=== PATIENT | male | born 1980 | race Caucasian/White ===

== ENCOUNTER 2020-11-12 22:18 | Emergency (ER) | payer MEDICAID ==
[~2020-11-12] VITALS: Ht 185.4 cm; Wt 72.7 kg
[~2020-11-12 22:18] MED LIST: LORA1TAB PO; PALI6TAB PO; ZIPR20CA2 PO
[2020-11-12 22:47] LABS: BASOPHILS # (AUTO) 0.1 X10'3 (0-0.2); EOSINOPHILS % (AUTO) 0.1 % (0-6); HEMOGLOBIN 13.4 g/dl (14.0-17.9); LYMPHOCYTES # (AUTO) 2.1 X10'3 (1.1-4.8); LYMPHOCYTES % (AUTO) 25.3 % (21-51); MEAN CORPUSCULAR HEMOGLOBIN 28.9 PG (27.0-31.0); MEAN CORPUSCULAR HGB CONC 32.8 g/dL (33.0-36.5); MEAN CORPUSCULAR VOLUME 88.1 FL (78-98); MEAN PLATELET VOLUME 7.1 FL (7.4-10.4); MONOCYTES # (AUTO) 0.6 X10'3 (0-0.9); MONOCYTES % (AUTO) 6.8 % (2-12); NEUTROPHILS # (AUTO) 5.6 X10'3 (1.8-7.7); NEUTROPHILS % (AUTO) 66.8 % (42-75); PLATELET COUNT 328 X10'3 (140-440); RED BLOOD COUNT 4.65 X10'6 (4.70-6.10); RED CELL DISTRIBUTION WIDTH 13.7 % (11.5-14.5); WHITE BLOOD COUNT 8.4 X10'3 (4.5-11.0)
--- NOTE | 2020-11-12 22:52 | NUR ---
Pt brought back to ER overflow accompanied by staff.
--- NOTE | 2020-11-12 22:56 | NUR ---
Pt changed into green scrubs, pt states he does not want to be here and that "no man owns another man."
[2020-11-12 23:03] LABS: ALANINE AMINOTRANSFERASE 38 U/L (12-78); ALBUMIN 3.9 G/DL (3.4-5.0); ALBUMIN/GLOBULIN RATIO 1.2 (1.1-1.5); ALKALINE PHOSPHATASE 119 IU/L (46-116); ANION GAP 7 (8-16); ASPARTATE AMINO TRANSFERASE 21 U/L (10-37); BILIRUBIN,TOTAL 0.3 MG/DL (0.1-1.0); BLOOD UREA NITROGEN 10 MG/DL (7-18); BUN/CREATININE RATIO 14.1 (5.4-32.0); CALCIUM 9.7 MG/DL (8.5-10.1); CHLORIDE 105 MMOL/L (99-107); CREATININE 0.71 MG/DL (0.60-1.10); ETHANOL < 0.010 GM/DL (0.0-0.010); GLUCOSE 98 MG/DL (70-104); POTASSIUM 4.3 MMOL/L (3.5-5.1); SODIUM 141 MMOL/L (135-145); TOTAL CARBON DIOXIDE 28.7 MMOL/L (24-32); TOTAL PROTEIN 7.2 G/DL (6.4-8.2); eGFR > 90 ML/MIN
[2020-11-12 23:12] LABS: URINE AMPHETAMINE SCREEN NEGATIVE (Neg); URINE BARBITUATE SCREEN NEGATIVE (Neg); URINE BENZODIAZEPINES SCREEN NEGATIVE (Neg); URINE CANNABINOID SCREEN NEGATIVE (Neg); URINE COCAINE SCREEN NEGATIVE (Neg); URINE METHADONE SCREEN NEGATIVE (Neg); URINE OPIATE SCREEN NEGATIVE (Neg); URINE PHENCYCLIDINE SCREEN NEGATIVE (Neg)
[2020-11-13] MEDS ORDERED: HALO10TA13 PO (00:23)
[2020-11-13] MEDS ORDERED: LEVO75CA5 PO (00:33)
[2020-11-13] MEDS ORDERED: DOCU100C33 PO (00:33)
[2020-11-13] MEDS ORDERED: AMAN100T2 PO (00:33)
[2020-11-13] MEDS ORDERED: DOXE10CA2 PO (00:33)
[2020-11-13] MEDS ORDERED: FLUV25TA3 PO (00:33)
[2020-11-13] MEDS ORDERED: CLOZ100T PO ×2 (00:33)
--- NOTE | 2020-11-13 02:03 | NUR ---
Pt up to the the restroom
--- NOTE | 2020-11-13 04:29 | NUR ---
Pt asleep on L side RR 14
[2020-11-13 05:11] VITALS: BP 103/63
[2020-11-13] MEDS ORDERED: levoTHYROXINE 75mcg tablet PO SCH (07:00)
--- NOTE | 2020-11-13 07:00 | NUR ---
Pt is medication compliant
[2020-11-13 07:12] LABS: CLARITY,URINE CLEAR (Clear); COLOR,URINE STRAW (Yellow); GLUCOSE, URINE NEGATIVE (Neg); KETONES,URINE NEGATIVE (Neg); LEUKOCYTE ESTERASE ,URINE NEGATIVE (Neg); NITRITES, URINE NEGATIVE (Neg); OCCULT BLOOD,URINE NEGATIVE (Neg); PROTEIN,URINE NEGATIVE (Neg); UROBILINOGEN,URINE 0.2 E.U/dL (0.2-1.0)
[2020-11-13 07:14] LABS: UA COLLECTION TYPE CLN CATCH MIDSTREAM
[2020-11-13] MEDS ORDERED: amantadine 100 MG capsule PO SCH (08:00)
[2020-11-13] MEDS ORDERED: clozapine 100mg tablet PO SCH ×2 (08:00→21:00)
[2020-11-13] MEDS ORDERED: docusate sod 100mg capsule PO SCH (08:00)
--- NOTE | 2020-11-13 08:10 | NUR ---
Pt is medication compliant
--- NOTE | 2020-11-13 08:51 | NUR ---
pt believes his dad is eliu clifton and continues talks about the elodia family
--- NOTE | 2020-11-13 09:00 | NUR ---
pt is walking around. no issues
--- NOTE | 2020-11-13 10:00 | NUR ---
pt is walking around.
--- NOTE | 2020-11-13 11:00 | NUR ---
pt is resting in his room. no issues
--- NOTE | 2020-11-13 11:59 | NUR ---
pt is speaking with [facility]
[2020-11-13] MEDS ORDERED: haloperidol 5mg tablet PO SCH (21:00)
[2020-11-13] MEDS ORDERED: fluvoxamine 25 MG tablet PO SCH (21:00)
[2020-11-13] MEDS ORDERED: doxepin 10mg capsule PO SCH (21:00)
== END 2020-11-13 14:16 | disposition home or self-care (01) ==
LOC: ER 22:18
DX: F20.9 Schizophrenia, unspecified (principal); F17.200 Nicotine dependence, unspecified, uncomplicated; Z56.0 Unemployment, unspecified; Z59.0 Homelessness; Z79.899 Other long term (current) drug therapy; Z73.6 Limitation of activities due to disability
CPT/HCPCS: 36415; 80053; 80305; 80320; 81003; 85025; 99285

== ENCOUNTER 2021-02-03 08:42 | Emergency (ER) | payer MEDICAID ==
[~2021-02-03] VITALS: Ht 182.9 cm; Wt 81.8 kg
[~2021-02-03 08:42] MED LIST changes: +AMAN100T2 PO; +CLOZ100T PO; +DOCU100C33 PO; +DOXE10CA2 PO; +FLUV25TA3 PO; +HALO10TA13 PO; +LEVO75CA5 PO; -LORA1TAB PO; -PALI6TAB PO; -ZIPR20CA2 PO
[2021-02-03 08:53] VITALS: BP 119/84
== END 2021-02-03 10:16 | disposition home or self-care (01) ==
LOC: ER 08:43
DX: F20.9 Schizophrenia, unspecified (principal); Z60.2 Problems related to living alone; Z59.0 Homelessness; Z56.0 Unemployment, unspecified; Z79.899 Other long term (current) drug therapy
CPT/HCPCS: 99281

== ENCOUNTER 2021-04-26 12:32 | Emergency (ER) | payer MEDICAID ==
[~2021-04-26] VITALS: Ht 185.4 cm; Wt 90.9 kg
[2021-04-26] MEDS ORDERED: LORazepam 1 MG tablet PO ONE (14:25)
[2021-04-26 14:48] LABS: URINE AMPHETAMINE SCREEN POSITIVE (Neg); URINE BARBITUATE SCREEN NEGATIVE (Neg); URINE BENZODIAZEPINES SCREEN NEGATIVE (Neg); URINE CANNABINOID SCREEN NEGATIVE (Neg); URINE COCAINE SCREEN NEGATIVE (Neg); URINE METHADONE SCREEN NEGATIVE (Neg); URINE OPIATE SCREEN NEGATIVE (Neg); URINE PHENCYCLIDINE SCREEN NEGATIVE (Neg)
[2021-04-26 14:50] LABS: CLARITY,URINE CLEAR (Clear); COLOR,URINE YELLOW (Yellow); GLUCOSE, URINE NEGATIVE (Neg); KETONES,URINE 15 mg/dl (Neg); LEUKOCYTE ESTERASE ,URINE NEGATIVE (Neg); NITRITES, URINE NEGATIVE (Neg); OCCULT BLOOD,URINE NEGATIVE (Neg); PROTEIN,URINE TRACE mg/dl (Neg); UROBILINOGEN,URINE 0.2 E.U/dL (0.2-1.0)
[2021-04-26 15:00] LABS: UA COLLECTION TYPE CLN CATCH MIDSTREAM
[2021-04-26 15:03] LABS: BASOPHILS # (AUTO) 0.1 X10'3 (0-0.2); BASOPHILS % (AUTO) 0.5 % (0-1); EOSINOPHILS % (AUTO) 0 % (0-6); HEMATOCRIT 45.7 % (42.0-52.0); HEMOGLOBIN 15.4 g/dl (14.0-17.9); LYMPHOCYTES # (AUTO) 2.1 X10'3 (1.1-4.8); LYMPHOCYTES % (AUTO) 17.4 % (21-51); MEAN CORPUSCULAR HEMOGLOBIN 29.2 PG (27.0-31.0); MEAN CORPUSCULAR HGB CONC 33.7 g/dL (33.0-36.5); MEAN CORPUSCULAR VOLUME 86.6 FL (78-98); MEAN PLATELET VOLUME 7.7 FL (7.4-10.4); MONOCYTES # (AUTO) 0.8 X10'3 (0-0.9); MONOCYTES % (AUTO) 6.5 % (2-12); NEUTROPHILS # (AUTO) 9.1 X10'3 (1.8-7.7); NEUTROPHILS % (AUTO) 75.6 % (42-75); PLATELET COUNT 396 X10'3 (140-440); RED BLOOD COUNT 5.27 X10'6 (4.70-6.10); RED CELL DISTRIBUTION WIDTH 13.2 % (11.5-14.5)
[2021-04-26 15:03] LABS: BACTERIA,URINE FEW /HPF (Neg); MUCUS STRANDS MODERATE /LPF (Neg); RBC,URINE NONE SEEN /HPF (0-2); SQUAMOUS EPITHELIAL CELL,UR FEW /LPF (FEW); WBC,URINE 0-4 /HPF (0-4)
[2021-04-26 15:18] LABS: ALANINE AMINOTRANSFERASE 28 U/L (12-78); ALBUMIN 4.6 G/DL (3.4-5.0); ALBUMIN/GLOBULIN RATIO 1.3 (1.1-1.5); ALKALINE PHOSPHATASE 146 IU/L (46-116); ANION GAP 10 (8-16); ASPARTATE AMINO TRANSFERASE 28 U/L (10-37); BILIRUBIN,TOTAL 0.6 MG/DL (0.1-1.0); BLOOD UREA NITROGEN 19 MG/DL (7-18); BUN/CREATININE RATIO 22.4 (5.4-32.0); CALCIUM 9.6 MG/DL (8.5-10.1); CHLORIDE 98 MMOL/L (99-107); CREATININE 0.85 MG/DL (0.60-1.10); ETHANOL < 0.010 GM/DL (0.0-0.010); GLUCOSE 76 MG/DL (70-104); POTASSIUM 4.7 MMOL/L (3.5-5.1); SODIUM 136 MMOL/L (135-145); TOTAL CARBON DIOXIDE 27.9 MMOL/L (24-32); TOTAL PROTEIN 8.2 G/DL (6.4-8.2); eGFR > 90 ML/MIN
[2021-04-26 15:19] LABS: ACETAMINOPHEN < 2.0 UG/ML (10-30)
--- NOTE | 2021-04-26 16:30 | NUR ---
PT RESTING IN BED, HAS BEEN WALKING AROUND IN ROOM. COOPERATIVE. TAKING FLUIDS, NO DISTRESS
--- NOTE | 2021-04-26 18:06 | NUR ---
PT RESTING IN BED, LYING ON SIDE, VISIBLE TO UNDERTAKER HELPER STATION
--- NOTE | 2021-04-26 18:20 | NUR ---
PT EATING IN ROOM
[2021-04-26] MEDS ORDERED: olanzapine 10mg tablet PO ONE (18:45)
--- NOTE | 2021-04-26 19:39 | NUR ---
MOVED FROM MAIN ER TO OVERFLOW BED 22. REPORTS FROM JUNAID HALL.
--- NOTE | 2021-04-26 19:43 | NUR ---
SPOKE WITH [facility], WHO REQ'S TSH ADD ON. LAB WILL DO THIS AND RESPADD NOTIFIED.
--- NOTE | 2021-04-26 21:35 | NUR ---
HOSSEIN FROM [facility] CALLING TO REQUEST TSH RESULT TO BE FAXED AND FOR PT TO HAVE COVID SWAB. ORDER PLACED FOR SWAB AND COLLECTED FROM PT WITHOUT ANY INCIDENT. WHEN ASKED IF HE'S BEEN SWABBED FOR COVID HE ANSWERS NO. ASKED IF HE KNOWS ABOUT THE COVID SWAB PROCESS OR KNOWS ANYONE WHO HAS HAD IT DONE HE STATES NO. PT DENIES ANY NEEDS AT THIS TIME. CURRENTLY LYING ON HIS LEFT SIDE WITH BLANKETS COVERING TO HIS SHOUDERS AND EYES CLOSED. HE IS CALM AND COOPERATIVE. SITTER AND RN WITHIN VIEW OF PT AAT.
--- NOTE | 2021-04-26 22:41 | NUR ---
COVID NEGITIVE. RESULTS FAXED TO [facility], HOSSEIN.
--- NOTE | 2021-04-26 23:14 | NUR ---
PT REMAINS ASLEEP, LYING ON HIS RIGHT SIDE WITH BLANKETS COVERING TO HER CHEST. RR 14 AND UNLABORED. SITTER AND RN WITHIN VIEW OF PT AAT. LANDRY FROM [facility] CALLING TO REPORT SHE RECEIVED THE [facility] LAB RESULTS.
--- NOTE | 2021-04-27 00:20 | NUR ---
Pt out of bed and ambulating to br with steady gait. Denied any needs. Returned to his bed and lay back down, covering himself with blankets to his shouders.
--- NOTE | 2021-04-27 03:21 | NUR ---
Pt sleeping. RR 14 and unlabored. Blankets covering to his shouder and pt lying on his left side. Sitter and RN within view of Pt aat.
--- NOTE | 2021-04-27 05:06 | NUR ---
pt remains asleep
[2021-04-27] MEDS ORDERED: UNABLE TO OBTAIN (05:39)
[2021-04-27 05:46] VITALS: BP 93/54
--- NOTE | 2021-04-27 06:14 | NUR ---
Pt awakened for am vs. VSS. Pt then went right back to sleep.
--- NOTE | 2021-04-27 06:42 | NUR ---
pt woke up around 0630 standing in his room and staring at nurses station,no attention was given and pt went back to sleep again.pt is laying in bed quietly with face covered with bed linen .rr nonlabored and WNL.
--- NOTE | 2021-04-27 08:05 | NUR ---
recived call from stephanie lemus ,as per her pt is accepted to [facility] but needed covid result to be faxed to [facility].
--- NOTE | 2021-04-27 08:08 | NUR ---
covid result test report faxed to [place] office at [phone].
--- NOTE | 2021-04-27 08:38 | NUR ---
pt sitting on side of bed eating his breakfast .pt said "thank you for the food".informed the pt if he needs any snack he can ask for it as he have pantry and we can provide snacks in betw the meal times.pt verbalized undersatnding.
--- NOTE | 2021-04-27 08:49 | NUR ---
respadd in route for patient, 10-15 min eta.
--- NOTE | 2021-04-27 08:53 | NUR ---
belongings returned to patient. instructed to get ready for transport.
--- NOTE | 2021-04-27 09:03 | NUR ---
pt came out of restroom getting dress up as [facility] personel on their way to [place] pt.
--- NOTE | 2021-04-27 09:11 | NUR ---
escorted out with security & MH worker
== END 2021-04-27 09:21 ==
LOC: ER 12:33
DX: F79 Unspecified intellectual disabilities (principal); Z20.822 Contact with and (suspected) exposure to COVID-19; F20.9 Schizophrenia, unspecified; Z60.2 Problems related to living alone; Z56.0 Unemployment, unspecified; Z59.0 Homelessness; Z79.899 Other long term (current) drug therapy
CPT/HCPCS: 36415; 80053; 80178; 80305; 80320; 80329; 81001; 84443; 85025; 87426; 99285

== ENCOUNTER 2021-10-30 11:40 | Emergency (ER) | payer MEDICAID ==
[~2021-10-30] VITALS: Ht 185.4 cm; Wt 70.0 kg
[~2021-10-30 11:40] MED LIST changes: +FLUV25TA14 PO; -FLUV25TA3 PO; +UNABLE TO OBTAIN
[2021-10-30 11:45] VITALS: BP 17/75
--- NOTE | 2021-10-30 11:58 | NUR ---
PT POURED URINE SAMPLE DOWN SINK "ITS BLOOD POISONING." TOLERATING BLOOD DRAW WELL.
[2021-10-30 12:18] LABS: BASOPHILS % (AUTO) 0.2 % (0-1); EOSINOPHILS % (AUTO) 0 % (0-6); HEMATOCRIT 41.4 % (42.0-52.0); LYMPHOCYTES # (AUTO) 1.9 X10'3 (1.1-4.8); LYMPHOCYTES % (AUTO) 24.8 % (21-51); MEAN CORPUSCULAR HEMOGLOBIN 29.6 PG (27.0-31.0); MEAN CORPUSCULAR HGB CONC 33.7 g/dL (33.0-36.5); MEAN CORPUSCULAR VOLUME 87.7 FL (78-98); MEAN PLATELET VOLUME 8.2 FL (7.4-10.4); MONOCYTES # (AUTO) 0.4 X10'3 (0-0.9); MONOCYTES % (AUTO) 5.6 % (2-12); NEUTROPHILS # (AUTO) 5.3 X10'3 (1.8-7.7); NEUTROPHILS % (AUTO) 69.4 % (42-75); PLATELET COUNT 247 X10'3 (140-440); RED BLOOD COUNT 4.73 X10'6 (4.70-6.10); RED CELL DISTRIBUTION WIDTH 13.4 % (11.5-14.5); WHITE BLOOD COUNT 7.6 X10'3 (4.5-11.0)
[2021-10-30 12:28] LABS: ALANINE AMINOTRANSFERASE 43 U/L (12-78); ALBUMIN 4.3 G/DL (3.4-5.0); ALBUMIN/GLOBULIN RATIO 1.3 (1.1-1.5); ALKALINE PHOSPHATASE 92 IU/L (46-116); ANION GAP 8 (8-16); ASPARTATE AMINO TRANSFERASE 21 U/L (10-37); BILIRUBIN,TOTAL 0.3 MG/DL (0.1-1.0); BLOOD UREA NITROGEN 14 MG/DL (7-18); BUN/CREATININE RATIO 19.4 (5.4-32.0); CALCIUM 8.9 MG/DL (8.5-10.1); CHLORIDE 102 MMOL/L (99-107); CREATININE 0.72 MG/DL (0.60-1.10); GLUCOSE 106 MG/DL (70-104); POTASSIUM 4.3 MMOL/L (3.5-5.1); SODIUM 141 MMOL/L (135-145); TOTAL PROTEIN 7.5 G/DL (6.4-8.2); eGFR > 90 ML/MIN
--- NOTE | 2021-10-30 12:30 | NUR ---
PT ELOPED FROM ER8. HARLEEN NOTIFIED, DEREK NOTIFIED.
[2021-10-30 12:43] LABS: ETHANOL < 0.010 GM/DL (0.0-0.010)
== END 2021-10-31 04:59 | disposition left against medical advice (07) ==
LOC: ER 11:40
DX: F25.0 Schizoaffective disorder, bipolar type (principal); F31.9 Bipolar disorder, unspecified; Z56.0 Unemployment, unspecified; Z59.00 Homelessness unspecified; Z79.899 Other long term (current) drug therapy
CPT/HCPCS: 36415; 80053; 80320; 84443; 85025; 99285

== ENCOUNTER 2021-10-31 09:32 | Emergency (ER) | payer MEDICAID ==
[~2021-10-31] VITALS: Ht 182.9 cm; Wt 75.0 kg
[2021-10-31] MEDS ORDERED: LORazepam 2 mg/ml vial IM ONE (09:40)
[2021-10-31] MEDS ORDERED: haloperidol lactate 5mg/ml inj IM ONE (09:40)
[2021-10-31] MEDS ORDERED: diphenhydrAMINE 50 mg/ml inj IM ONE (09:40)
[2021-10-31 10:37] LABS: BASOPHILS % (AUTO) 0.1 % (0-1); EOSINOPHILS % (AUTO) 0 % (0-6); HEMATOCRIT 42.3 % (42.0-52.0); HEMOGLOBIN 14.2 g/dl (14.0-17.9); LYMPHOCYTES # (AUTO) 1.5 X10'3 (1.1-4.8); MEAN CORPUSCULAR HEMOGLOBIN 29.3 PG (27.0-31.0); MEAN CORPUSCULAR HGB CONC 33.7 g/dL (33.0-36.5); MEAN PLATELET VOLUME 8.3 FL (7.4-10.4); MONOCYTES # (AUTO) 0.6 X10'3 (0-0.9); MONOCYTES % (AUTO) 6.9 % (2-12); NEUTROPHILS # (AUTO) 5.9 X10'3 (1.8-7.7); PLATELET COUNT 260 X10'3 (140-440); RED BLOOD COUNT 4.86 X10'6 (4.70-6.10); RED CELL DISTRIBUTION WIDTH 13.7 % (11.5-14.5)
[2021-10-31 10:46] LABS: ASPARTATE AMINO TRANSFERASE 26 U/L (10-37); BILIRUBIN,TOTAL 0.3 MG/DL (0.1-1.0); BLOOD UREA NITROGEN 7 MG/DL (7-18); BUN/CREATININE RATIO 9.7 (5.4-32.0); CALCIUM 8.7 MG/DL (8.5-10.1); CHLORIDE 105 MMOL/L (99-107); CREATININE 0.72 MG/DL (0.60-1.10); GLUCOSE 92 MG/DL (70-104); POTASSIUM 4.2 MMOL/L (3.5-5.1); TOTAL CARBON DIOXIDE 30.5 MMOL/L (24-32); eGFR > 90 ML/MIN
[2021-10-31 10:49] LABS: ALANINE AMINOTRANSFERASE 45 U/L (12-78); ALBUMIN 4.2 G/DL (3.4-5.0); ALBUMIN/GLOBULIN RATIO 1.3 (1.1-1.5); ALKALINE PHOSPHATASE 97 IU/L (46-116); ETHANOL < 0.010 GM/DL (0.0-0.010); SODIUM 142 MMOL/L (135-145); TOTAL PROTEIN 7.4 G/DL (6.4-8.2)
--- NOTE | 2021-10-31 11:05 | NUR ---
URINE COLLECTED AND SENT TO LAB.
[2021-10-31 11:29] LABS: CLARITY,URINE CLEAR (Clear); COLOR,URINE YELLOW (Yellow); GLUCOSE, URINE NEGATIVE (Neg); KETONES,URINE NEGATIVE (Neg); LEUKOCYTE ESTERASE ,URINE NEGATIVE (Neg); NITRITES, URINE NEGATIVE (Neg); OCCULT BLOOD,URINE NEGATIVE (Neg); PROTEIN,URINE NEGATIVE (Neg); UROBILINOGEN,URINE 0.2 E.U/dL (0.2-1.0)
[2021-10-31 11:33] LABS: UA COLLECTION TYPE URINAL; URINE AMPHETAMINE SCREEN NEGATIVE (Neg); URINE BARBITUATE SCREEN NEGATIVE (Neg); URINE BENZODIAZEPINES SCREEN NEGATIVE (Neg); URINE CANNABINOID SCREEN POSITIVE (Neg); URINE COCAINE SCREEN NEGATIVE (Neg); URINE METHADONE SCREEN NEGATIVE (Neg); URINE OPIATE SCREEN NEGATIVE (Neg); URINE PHENCYCLIDINE SCREEN NEGATIVE (Neg)
[2021-10-31 11:56] LABS: ANION GAP 7 (8-16)
--- NOTE | 2021-10-31 12:15 | NUR ---
PACKET FAXED TO [facility]
--- NOTE | 2021-10-31 14:16 | NUR ---
Patient ambulated to bed 23. Patient appears sedated, and went right to sleep.
--- NOTE | 2021-10-31 15:21 | NUR ---
Patient is sleeping on his left side. Respirations are even and nonlabored.
--- NOTE | 2021-10-31 15:44 | NUR ---
breaking primary RN patient in bed lying on left side covers on eyes closed rr even un labored no observable s/s of acute stress at this time
--- NOTE | 2021-10-31 16:37 | NUR ---
Patient eating lunch tray.
--- NOTE | 2021-10-31 17:10 | NUR ---
Patient awakened and is up to the restroom. States that he is "fine".
[2021-10-31 17:30] VITALS: BP 107/70
--- NOTE | 2021-10-31 17:59 | NUR ---
Patient is eating dinner.
== END 2021-10-31 18:51 ==
LOC: ER 09:32
DX: F25.0 Schizoaffective disorder, bipolar type (principal); Z20.822 Contact with and (suspected) exposure to COVID-19; K02.9 Dental caries, unspecified; K08.89 Other specified disorders of teeth and supporting structures; Z56.0 Unemployment, unspecified; Z59.00 Homelessness unspecified; Z79.899 Other long term (current) drug therapy
CPT/HCPCS: 36415; 80053; 80305; 80320; 81003; 84443; 85025; 87635; 96372; 99285; C9803; J1200; J1630; J2060

== ENCOUNTER 2022-11-20 09:20 | Inpatient (IN) | payer MEDICAID ==
[~2022-11-20] VITALS: Ht 185.4 cm; Wt 69.5 kg
[2022-11-20] MEDS ORDERED: acetaminophen 325mg tablet PO STA (09:33)
[2022-11-20] MEDS ORDERED: normal saline 1000ML IV soln IV ONE (09:35)
--- NOTE | 2022-11-20 10:00 | NUR ---
PT AO 3 SOFT SPOKEN SPEAKS CLEARLY. DENIES SP SOB. RESP EVEN UNLABORED. SKIN IS HOT TO TOUCH COOLING MEASURES INTIATED. PT DRESSED IN GOWN CALL LIGHT AT BEDSIDE.
[2022-11-20 10:04] LABS: BASOPHILS # (AUTO) 0.3 X10'3 (0-0.2); BASOPHILS % (AUTO) 1.2 % (0-1); EOSINOPHILS % (AUTO) 0 % (0-6); HEMOGLOBIN 12.8 g/dl (14.0-17.9); LYMPHOCYTES # (AUTO) 0.7 X10'3 (1.1-4.8); MEAN CORPUSCULAR VOLUME 85.1 FL (78-98); MEAN PLATELET VOLUME 6.9 FL (7.4-10.4); MONOCYTES # (AUTO) 0.7 X10'3 (0-0.9); MONOCYTES % (AUTO) 3.1 % (2-12); NEUTROPHILS # (AUTO) 21.7 X10'3 (1.8-7.7); NEUTROPHILS % (AUTO) 92.7 % (42-75); PLATELET COUNT 350 X10'3 (140-440); RED BLOOD COUNT 4.58 X10'6 (4.70-6.10); RED CELL DISTRIBUTION WIDTH 14.5 % (11.5-14.5); WHITE BLOOD COUNT 23.4 X10'3 (4.5-11.0)
[2022-11-20] MEDS ORDERED: CefTRIAXone 2gm/D5W 50ml BAG 50 ML IV ONE (10:20)
[2022-11-20 11:04] LABS: CLARITY,URINE SLIGHTLY CLOUDY (Clear); COLOR,URINE YELLOW (Yellow); GLUCOSE, URINE NEGATIVE (Neg); KETONES,URINE NEGATIVE (Neg); LEUKOCYTE ESTERASE ,URINE TRACE (Neg); NITRITES, URINE NEGATIVE (Neg); OCCULT BLOOD,URINE TRACE-INTACT (Neg); PROTEIN,URINE NEGATIVE (Neg); UROBILINOGEN,URINE 0.2 E.U/dL (0.2-1.0)
[2022-11-20 11:04] LABS: ALANINE AMINOTRANSFERASE 25 U/L (12-78); ALBUMIN 3.2 G/DL (3.4-5.0); ALBUMIN/GLOBULIN RATIO 0.8 (1.1-1.5); ALKALINE PHOSPHATASE 93 IU/L (46-116); ANION GAP 9 (8-16); ASPARTATE AMINO TRANSFERASE 16 U/L (10-37); BILIRUBIN,TOTAL 0.3 MG/DL (0.1-1.0); BLOOD UREA NITROGEN 9 MG/DL (7-18); BUN/CREATININE RATIO 10.6 (5.4-32.0); CALCIUM 8.5 MG/DL (8.5-10.1); CHLORIDE 98 MMOL/L (99-107); CREATININE 0.85 MG/DL (0.60-1.10); GLUCOSE 142 MG/DL (70-104); SODIUM 132 MMOL/L (135-145); TOTAL CARBON DIOXIDE 25.1 MMOL/L (24-32); TOTAL PROTEIN 7.1 G/DL (6.4-8.2); eGFR > 90 ML/MIN
[2022-11-20 11:23] LABS: UA COLLECTION TYPE NON-SPECIFIED
[2022-11-20 11:31] LABS: SQUAMOUS EPITHELIAL CELL,UR FEW /LPF (FEW)
[2022-11-20 11:33] LABS: RBC,URINE 0-2 /HPF (0-2)
[2022-11-20 11:38] LABS: BACTERIA,URINE 1+ /HPF (Neg); MUCUS STRANDS NONE SEEN /LPF (Neg); WBC CLUMPS,URINE FEW /HPF (NEGATIVE)
[2022-11-20] MEDS ORDERED: magnesium Cl slow-release 64mg tablet PO PRN (12:15)
[2022-11-20] MEDS ORDERED: magnesium 4gm in 100ml NS 100 ML IV PRN (12:15)
[2022-11-20] MEDS ORDERED: ondansetron/PF 4mg/2ml inj IV PRN (12:15)
[2022-11-20] MEDS: normal saline 1000ml 1,000 ML IV SCH ×2 (12:15→22:09)
[2022-11-20] MEDS ORDERED: potassium Cl 40MEQ/1/2NS 520ml 520 ML IV PRN (12:15)
[2022-11-20] MEDS ORDERED: potassium Cl 20 mEq SR tablet PO PRN ×2 (12:15)
[2022-11-20] MEDS ORDERED: CefTRIAXone/D5W-Rocephin 1gm 50 ML IV SCH (13:35)
[2022-11-20] MEDS ORDERED: ketorolac tromethamine 15mg/ml inj. IV ONE (14:10)
--- NOTE | 2022-11-20 14:10 | NUR ---
PT SPIKE FEVER OF 103.5 PROVIDER ESMER MADE AWARE NEW ORDER OF TORADOL TO BE GIVEN.
[2022-11-20] MEDS ORDERED: DOCU100C40 PO (15:34)
[2022-11-20] MEDS ORDERED: LEVO50TA PO (15:35)
[2022-11-20] MEDS ORDERED: CHOL20004 PO (15:35)
[2022-11-20] MEDS ORDERED: LORA-269 PO (15:36)
[2022-11-20] MEDS ORDERED: DESM0.1T24 PO (15:36)
[2022-11-20] MEDS ORDERED: CLOZ50TA PO (15:38)
[2022-11-20] MEDS ORDERED: GABA-534 PO (15:39)
[2022-11-20] MEDS ORDERED: SALINE NASAL SPRAY NAS (15:41)
[2022-11-20] MEDS: K and/or MAG REPLACEMENT MC SCH (16:08)
[2022-11-20] MEDS: acetaminophen 325mg tablet PO PRN ×2 (16:12→22:08)
--- NOTE | 2022-11-20 16:22 | NUR ---
TORADOL IV MED INEFFECTIVE. PO PRN TYLENOL 650 MG GIVEN.
--- NOTE | 2022-11-20 18:23 | NUR ---
REPORT TO MILTON CAMACHO FOR CONTINUATION OF CARE.
--- NOTE | 2022-11-20 21:00 | NUR ---
called floor for report rn not avalible. requested to call back in a few min.
--- NOTE | 2022-11-20 21:35 | NUR ---
REPORT CALLED TO FLOOR NURSE TX BY TECH TO ROOM 350A
[2022-11-20 22:06] VITALS: BP 114/67
[2022-11-21] MEDS ORDERED: acetaminophen 325mg tablet PO PRN (02:35)
[2022-11-21 02:45] VITALS: BP 78/51
--- NOTE | 2022-11-21 03:20 | NUR ---
PAGER ID: [phone] MESSAGE: PT Chandrakant 350A Ladarius Ramon BP 78/51 250cc bolus is being given. masha [phone]
[2022-11-21 03:22] VITALS: BP 96/76
--- NOTE | 2022-11-21 03:24 | NUR ---
PAGER ID: [phone] MESSAGE: Pt [id number] Ladarius Nguyễn had BP 78/51 is now 96/74 after receiving bolus and temp is 102.7 with cooling blanket. Has NS running at 100ml/hr. please advise Radha [phone]
--- NOTE | 2022-11-21 03:30 | NUR ---
Dr Muñiz made aware that BP was 78/51 received 250cc bolus BP up to 96/76 and has N/S running at 100 ml/hr patient temp is 102.7 on cooling blanket received Tylenol aprox 40 min ago. Recheck Q 1 hour no new orders at this time.
--- NOTE | 2022-11-21 04:25 | NUR ---
PAGER ID: [phone] MESSAGE: PtRM 350A TristenLadarius is agitated and wants to leave he is from [facility] ripped out IV can we please get something to calm him down PO masha [phone]
[2022-11-21] MEDS ORDERED: LORazepam 1 MG tablet PO ONE (04:40)
--- NOTE | 2022-11-21 05:02 | NUR ---
Pt felt he was having some sort of blood transfusion done that he did not authorize he was educated on what he was getting normal saline and had received antibiotics in the ED. He ripped out his IV and removed his blood pressure cuff. Nadya from [facility] said this patient has a fixation with blood and blood purification at baseline and can obsess about it. Patient said he "Trusts no one". Pt was escorted back to his room by security after saying he wanted to go back to his room at [facility] and tried to get on the elevator. Dr Muñiz aware and ordered the patient's home med of Ativan 1mg po and his nighttime Clozaril dose along with soft restraints. Pt is refusing all vitals but did take his PO Ativan. Unable to assess temperature or blood pressure at this time.
--- NOTE | 2022-11-21 06:00 | NUR ---
Problems reprioritized. Patient report given, questions answered & plan of care reviewed with JUNAID Meehan.
[2022-11-21 06:40] LABS: BASOPHILS % (AUTO) 0.2 % (0-1); EOSINOPHILS % (AUTO) 0 % (0-6); HEMATOCRIT 37.7 % (42.0-52.0); HEMOGLOBIN 12.5 g/dl (14.0-17.9); LYMPHOCYTES # (AUTO) 0.6 X10'3 (1.1-4.8); MEAN CORPUSCULAR HEMOGLOBIN 28.7 PG (27.0-31.0); MEAN CORPUSCULAR HGB CONC 33.2 g/dL (33.0-36.5); MEAN CORPUSCULAR VOLUME 86.5 FL (78-98); MONOCYTES # (AUTO) 0.5 X10'3 (0-0.9); MONOCYTES % (AUTO) 3.7 % (2-12); NEUTROPHILS # (AUTO) 11.6 X10'3 (1.8-7.7); NEUTROPHILS % (AUTO) 91.1 % (42-75); PLATELET COUNT 258 X10'3 (140-440); RED BLOOD COUNT 4.36 X10'6 (4.70-6.10); WHITE BLOOD COUNT 12.7 X10'3 (4.5-11.0)
[2022-11-21 07:00] VITALS: BP 92/59
[2022-11-21 07:23] LABS: ALBUMIN 2.8 G/DL (3.4-5.0); ANION GAP 10 (8-16); BLOOD UREA NITROGEN 7 MG/DL (7-18); BUN/CREATININE RATIO 9.1 (5.4-32.0); CALCIUM 8.3 MG/DL (8.5-10.1); CHLORIDE 101 MMOL/L (99-107); CREATININE 0.77 MG/DL (0.60-1.10); GLUCOSE 130 MG/DL (70-104); MAGNESIUM 2.2 MG/DL (1.5-2.4); POTASSIUM 3.7 MMOL/L (3.5-5.1); SODIUM 134 MMOL/L (135-145); TOTAL CARBON DIOXIDE 23.4 MMOL/L (24-32); eGFR > 90 ML/MIN
[2022-11-21] MEDS: K and/or MAG REPLACEMENT MC SCH ×2 (08:00→20:00)
[2022-11-21] MEDS ORDERED: CefTRIAXone/D5W-Rocephin 1gm 50 ML IV SCH (08:00)
[2022-11-21] MEDS: normal saline 1000ml 1,000 ML IV SCH ×2 (08:15→18:15)
[2022-11-21] MEDS: LORazepam 1 MG tablet PO SCH ×2 (08:39→20:34)
[2022-11-21 09:00] VITALS: BP 114/69
[2022-11-21 11:38] VITALS: BP 114/69
--- NOTE | 2022-11-21 11:59 | NUR ---
Spoke with Nurse at [facility], she notified me that the patients bed will be held and patient will be able to dc back to [facility] when ready. [employer] Project Manager notified.
[2022-11-21] MEDS: CefTRIAXone 1000mg IM Kit (w/lidocaine diluent) IM SCH (15:34)
--- NOTE | 2022-11-21 15:51 | NUR ---
PAGER ID: [phone] MESSAGE: [id number] Jonathan Ramon: Patient refusing to leave his tele on. His 24hr order ends at 2250. can I dc early? thanks, marimar [phone]
[2022-11-21 18:00] VITALS: BP 106/68
--- NOTE | 2022-11-21 18:28 | NUR ---
Patient in room REJI 350. I have received report from Anju QUIROGA and had the opportunity to ask questions and assume patient care.
--- NOTE | 2022-11-21 18:56 | NUR ---
Problems reprioritized. Patient report given, questions answered & plan of care reviewed with JUNAID De Leon.
--- NOTE | 2022-11-21 20:25 | NUR ---
Called MD to see if ok to give desmopressin tonight as Na 134 and patient has no iv/fluids running. Per MD, OK to give.
[2022-11-21] MEDS ORDERED: clozapine 100mg tablet PO SCH (21:00)
[2022-11-21] MEDS ORDERED: DESMOPRESSIN ACETATE 0.1 MG TABLET PO SCH (21:00)
[2022-11-21] MEDS ORDERED: clozapine 25mg tablet PO SCH (21:00)
[2022-11-21] MEDS ORDERED: docusate sod 100mg capsule PO SCH (21:00)
--- NOTE | 2022-11-21 22:00 | NUR ---
Patient refused for 2200 VS to be taken. Will retry later.
[2022-11-22] MEDS: gabapentin 400mg capsule PO SCH ×2 (00:07→08:21)
[2022-11-22 00:11] VITALS: BP 94/62
[2022-11-22] MEDS: normal saline 1000ml 1,000 ML IV SCH ×2 (04:15→14:15)
--- NOTE | 2022-11-22 06:10 | NUR ---
Problems reprioritized. Patient report given, questions answered & plan of care reviewed with Anju QUIROGA.
[2022-11-22 06:23] LABS: BASOPHILS % (AUTO) 0.3 % (0-1); EOSINOPHILS % (AUTO) 0.1 % (0-6); HEMATOCRIT 32.8 % (42.0-52.0); HEMOGLOBIN 10.9 g/dl (14.0-17.9); LYMPHOCYTES # (AUTO) 1.3 X10'3 (1.1-4.8); LYMPHOCYTES % (AUTO) 18.2 % (21-51); MEAN CORPUSCULAR HEMOGLOBIN 28.2 PG (27.0-31.0); MEAN CORPUSCULAR HGB CONC 33.2 g/dL (33.0-36.5); MEAN CORPUSCULAR VOLUME 84.8 FL (78-98); MEAN PLATELET VOLUME 7.1 FL (7.4-10.4); MONOCYTES # (AUTO) 0.5 X10'3 (0-0.9); MONOCYTES % (AUTO) 6.6 % (2-12); NEUTROPHILS # (AUTO) 5.5 X10'3 (1.8-7.7); NEUTROPHILS % (AUTO) 74.8 % (42-75); PLATELET COUNT 219 X10'3 (140-440); RED BLOOD COUNT 3.86 X10'6 (4.70-6.10); RED CELL DISTRIBUTION WIDTH 15.3 % (11.5-14.5); WHITE BLOOD COUNT 7.4 X10'3 (4.5-11.0)
[2022-11-22 06:33] LABS: ALBUMIN 2.4 G/DL (3.4-5.0); ANION GAP 6 (8-16); BLOOD UREA NITROGEN 8 MG/DL (7-18); BUN/CREATININE RATIO 12.7 (5.4-32.0); CALCIUM 8.1 MG/DL (8.5-10.1); CHLORIDE 102 MMOL/L (99-107); CREATININE 0.63 MG/DL (0.60-1.10); GLUCOSE 98 MG/DL (70-104); POTASSIUM 3.6 MMOL/L (3.5-5.1); SODIUM 135 MMOL/L (135-145); TOTAL CARBON DIOXIDE 27.4 MMOL/L (24-32); eGFR > 90 ML/MIN
[2022-11-22 07:10] VITALS: BP 81/43
[2022-11-22] MEDS ORDERED: levoTHYROXINE 25mcg tablet PO SCH (08:00)
[2022-11-22] MEDS: K and/or MAG REPLACEMENT MC SCH (08:00)
[2022-11-22] MEDS ORDERED: clozapine 100mg tablet PO SCH (08:00)
[2022-11-22] MEDS ORDERED: salt irrigation nasal spray 45 ML SPRAY NS SCH (08:00)
[2022-11-22] MEDS ORDERED: cholecalciferol (vitamin D3) 1,000 unit (25mcg) tablet PO SCH (08:00)
[2022-11-22] MEDS: LORazepam 1 MG tablet PO SCH (08:21)
[2022-11-22] MEDS: CefTRIAXone 1000mg IM Kit (w/lidocaine diluent) IM SCH (08:22)
[2022-11-22 10:00] VITALS: BP 97/66
[2022-11-22] MEDS ORDERED: LEVO750T68 PO (11:01)
--- NOTE | 2022-11-22 12:44 | NUR ---
PAGER ID: [phone] MESSAGE: [id number] Naina Ramon: Harmeetnaina is requesting something stating Medical Clearance. thanks! marimar, [phone]
--- NOTE | 2022-11-22 15:44 | NUR ---
Patient stable and appropriate for discharge back to [facility]. All belongings gathered from room. [facility] staff picked patient up. All dc instructions and education given and reviewed with Charge Nurse at [facility]. New RX will be sent in by the Nurse at [facility] for their preferred pharmacy.
== END 2022-11-22 15:34 | disposition home or self-care (01) | DRG 720 ==
LOC: ER 09:20 → ED HOLD 12:16 → SUR 3N 21:51
PROVIDERS: ADMIT Internal Medicine; ATTEND Internal Medicine
DX: A41.9 Sepsis, unspecified organism (principal); E87.1 Hypo-osmolality and hyponatremia; F25.0 Schizoaffective disorder, bipolar type; N39.0 Urinary tract infection, site not specified; E03.9 Hypothyroidism, unspecified; F31.60 Bipolar disorder, current episode mixed, unspecified; K59.00 Constipation, unspecified; Z79.899 Other long term (current) drug therapy; Z56.0 Unemployment, unspecified; Z59.00 Homelessness unspecified; B96.89 Other specified bacterial agents as the cause of diseases classified elsewhere
CPT/HCPCS: 36415; 71045; 74176; 80048; 80053; 81001; 83605; 83735; 84145; 85025; 87040; 87077; 87081; 87088; 87186; 87502; 87503; 87635; 99285; G0378; J0696; J1885; J7030; J7040